=== PATIENT | male | born 1985 | race Caucasian/White ===

== ENCOUNTER 2024-06-16 08:29 | Outpatient (CLI) | payer OTHER, SELFPAY | END 2024-06-16 08:30 | disposition home or self-care (01) | LOC: LKVREF 08:33 | PROVIDERS: Visit Provider Family Medicine | DX: J34.89 Other specified disorders of nose and nasal sinuses (principal); B95.61 Methicillin susceptible Staphylococcus aureus infection as the cause of diseases classified elsewhere | CPT/HCPCS: 87070; 87186 ==

== ENCOUNTER 2024-12-22 13:29 | Outpatient (CLI) | payer OTHER, SELFPAY | END 2024-12-22 13:30 | disposition home or self-care (01) | LOC: LKVREF 13:29 | PROVIDERS: Visit Provider Otolaryngology | DX: J34.89 Other specified disorders of nose and nasal sinuses (principal) | CPT/HCPCS: 83036; 83516 ==

== ENCOUNTER 2024-12-30 09:39 | Outpatient (CLI) | payer OTHER, SELFPAY ==
--- NOTE | 2024-12-30 10:00 | CRLHL7_ITS ---
For Patients: As a result of the Century Cures Act, medical imaging exams and procedure reports are released immediately into your electronic medical record. You may view this report before your referring provider. If you have questions, please contact your health care provider. Indication: Nasal pain, nasal septal perforation. Technique: Noncontrast CT of the paranasal sinuses with multiplanar reconstruction. Comparison: None available. Findings: Frontal sinuses: Lobulated mucosal thickening within the frontal recesses. Maxillary sinuses: Trace mucosal thickening within the left maxillary alveolar recess. Clear ostiomeatal complexes and accessory maxillary ostia. Ethmoid sinuses: Moderate diffuse mucosal thickening. Sphenoid sinuses: Trace mucosal thickening with opacified sphenoid ostia. Nasal cavity: Perforated cartilaginous nasal septum. Rightward deviation of the bony nasal septum with a 4 mm rightward projecting septal spur. Left middle turbinate yenny bullosa. Other: Symmetric nasopharynx. Unremarkable orbits. On limited evaluation, the intracranial structures are within normal limits. Impression: 1. Perforated cartilaginous nasal septum. 2. Rightward deviation of the bony nasal septum with a 4 mm septal spur. 3. Left middle turbinate yenny bullosa. 4. Lobulated mucosal thickening within the frontal recesses and throughout the ethmoid sinuses. Please note that all CT scans at this facility use dose modulation, iterative reconstruction, and/or weight-based dosing when appropriate to reduce radiation dose to as low as reasonably achievable. Dictated by Ermias Vazquez MD @ 12/31/2024 11:34:07 AM (Electronically Signed)
== END 2024-12-30 09:40 | disposition home or self-care (01) ==
LOC: CT 09:42
PROVIDERS: PCP Family Medicine; Visit Provider Otolaryngology
DX: J34.89 Other specified disorders of nose and nasal sinuses (principal); J34.2 Deviated nasal septum
CPT/HCPCS: 70486